=== PATIENT | male | born 1995 | race Caucasian/White ===

== ENCOUNTER 2024-01-18 13:01 | Outpatient (AMB) | payer BC, SELFPAY ==
--- NOTE | 2024-01-18 13:05 | AM.OFFWIN_ITS ---
Intake Vital Signs 01/18/24 14:08 Height 6 ft 4 in Weight 274 lb BMI 33.3 BP 118/74 Blood Pressure Location Rt brachial Position Sitting Pulse 55 Pulse Source Pulse Oximeter Temp 98.0 F Temp Source Oral Pulse Oximetry (%) 98 Oxygen Delivery Method Room Air Intake Visit Reasons: EP-lt eye swollen Intake Note: pt c/o foreign object in LT eye. Has already done eye wash. Unsuccessful Patient Tobacco Use Status: Never used Tobacco Allergies sulfamethoxazole [From BACTRIM] Allergy (Unknown, Verified 01/18/24 14:11) RASH trimethoprim [From BACTRIM] Allergy (Unknown, Verified 01/18/24 14:11) RASH Do you need a note to return to daycare/school/sports/work: No HPI HPI Comments History of Present Illness Details Patient is a 28-year-old male complaining of left eye pain and redness, he thinks he got something in it the night before last but he is not sure what or when anything actually happened because he woke up with pain this morning; he denies any changes in his vision or blurry vision. He denies any drainage. 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 He states he did the emergency eye rinse at his workplace today but that did not seem to help. He states that in his left eye he can see a black speck right in the area of the color of his eye. [facility] Social History Patient Tobacco Use Status: Never used Tobacco Review of Systems Const All systems reviewed & are unremarkable except as noted in HPI and below Physical Exam Vital Signs: Last Vital Signs Temp 98.0 F 01/18/24 14:08 Pulse 55 01/18/24 14:08 BP 118/74 01/18/24 14:08 Pulse Ox 98 01/18/24 14:08 Oxygen Delivery Method Room Air 01/18/24 14:08 BMI result Body Mass Index 33.3 Const General: cooperative, healthy appearing, comfortable, no acute distress and well developed Orientation/consciousness: patient oriented x3 Limitations: no limitations HEENT Head: Yes normal to inspection Ears: hearing grossly normal bilaterally General nose exam: Normal external nose present Face and sinus: Yes normal facial exam Eyes Other: 9 o'clock position of the left eye in the iris there is a black dot General: appearance normal, both eyes and all related structures Alignment and Position: alignment normal and position normal Periorbital: periorbital findings normal Eyelids: Yes eyelids normal Conjunctivae: conjunctival abnormal bilateral conjunctival injection Neck Neck: Yes normal visual inspection and Yes full ROM Resp Effort & Inspection: normal respiratory effort and able to speak in complete sentences Skin General skin exam: no rashes or lesions noted Neuro General: patient oriented x3 Extrem General: Yes normal to inspection Assessment & Plan Assessment & Plan (1) Acute left eye pain: Code(s): H57.12 - Ocular pain, left eye Plan: Had patient use the emergency eye rinse however he was unsuccessful in dislodging the foreign object in his left eye which is evident on exam. Called Dr. Fontana's office, they said they could take him immediately so the patient is going to his office for further management. (2) Foreign body in eye: Code(s): T15.90XA - Foreign body on external eye, part unspecified, unspecified eye, initial encounter Qualifiers: Encounter type: initial encounter Laterality: left Qualified Code(s): T15.92XA - Foreign body on external eye, part unspecified, left eye, initial encounter Plan: See above Plan See above Coding Level of Care Code New Pt Level 4 (53894) Diagnoses Acute left eye pain H57.12 Foreign body of left eye, initial encounter T15.92XA Encounter type: initial encounter Laterality: left
[2024-01-18 14:08] VITALS: BP 118/74; PULSE 55; TEMP 36.7; O2SAT 98; BMI 33.3
== END 2024-01-18 15:01 | disposition home or self-care (01) ==
PROVIDERS: PCP Pediatrics; Visit Provider Physician Assistant
DX: H57.12 Ocular pain, left eye (principal); T15.92XA Foreign body on external eye, part unspecified, left eye, initial encounter
CPT/HCPCS: 99204